=== PATIENT | male | born 1985 | race American Indian/Alaskan Native ===

== ENCOUNTER 2017-01-16 15:05 | Emergency (ER) | payer SELFPAY ==
[2017-01-16 15:19] VITALS: BP 123/85
[2017-01-16 15:42] LABS: Basophils % (Auto) 1.1 % (0.0-1.8); Eosinophils % (Auto) 1.3 % (0.0-4.3); Hematocrit 49.3 % (35.5-45.6); Hemoglobin 15.8 gm/dl (11.8-15.2); Mean Corpuscular HGB Conc 32 % (32-34); Mean Corpuscular Hemoglobin 29 pg (28-32); Mean Corpuscular Volume 90 fl (84-94); Platelet Count 265 K/mm3 (140-440); Red Blood Count 5.51 M/mm3 (3.65-5.03); Red Cell Distribution Width 13.7 % (13.2-15.2); White Blood Count 3.9 K/mm3 (4.5-11.0)
[2017-01-16 15:54] LABS: Anion Gap 16 mmol/L; BUN/Creatinine Ratio 13; Blood Urea Nitrogen 12 mg/dL (9-20); Calcium 9.4 mg/dL (8.4-10.2); Carbon Dioxide 27 mmol/L (22-30); Glucose 73 mg/dL (75-100); Potassium 4.4 mmol/L (3.6-5.0); Sodium 139 mmol/L (137-145)
== END 2017-01-16 22:35 | disposition left against medical advice (07) ==
LOC: ED 15:05
DX: J02.9 Acute pharyngitis, unspecified (principal); Z53.21 Procedure and treatment not carried out due to patient leaving prior to being seen by health care provider
CPT/HCPCS: 36415; 80048; 84484; 85025; 93005; 93010

== ENCOUNTER 2017-02-04 16:48 | Emergency (ER) | payer OTHER ==
[2017-02-04 16:57] VITALS: BP 103/70
--- NOTE | 2017-02-04 17:49 | Emergency Department Report ---
HPI - General Chief Complaint: Dental/Oral Time Seen by Provider: 02/04/17 17:28 - HPI HPI: The patient is a 31-year-old male who presents to ED complaining of 5/10 pain in the right side of his mouth x 3 days . She states that The pain is exacerbated by eating and opening of the mouth. Patient states the pain is alleviated initially with some Goody powder which she took earlier but comes back. Patient states that it radiates towards ear. Patient describes a as a throbbing, pressure-like sensation. Patient states otherwise well and has no other complaints. Patient has had no fevers and no chills. No chest pain, no shortness of breath. No abdominal pain. No shortness of breath or recent trauma to the face. ED Past Medical Hx - Past Medical History Previous Medical History?: No Hx Hypertension: No Hx CVA: No Hx Heart Attack/AMI: No Hx Congestive Heart Failure: No Hx Diabetes: No Hx Deep Vein Thrombosis: No Hx Pulmonary Embolism: No Hx GERD: No Hx Liver Disease: No Hx Renal Disease: No Hx Sickle Cell Disease: No Hx Arthritis: No Hx Headaches / Migraines: No Hx Seizures: No Hx Kidney Stones: No Hx Psychiatric Treatment: No Hx Asthma: No Hx COPD: No Hx Tuberculosis: No Hx Dementia: No Hx HIV: No - Surgical History Hx Coronary Stent: No Hx Open Heart Surgery: No Hx Pacemaker: No Hx Internal Defibrillator: No Hx Cholecystectomy: No Hx Appendectomy: No Hx Breast Surgery: No Additional Surgical History: T&A-childhood - Social History Smoking Status: Never Smoker Substance Use Type: Alcohol - Medications Home Medications: Home Medications Medication Instructions Recorded Confirmed Last Taken Type Acetaminophen/Codeine 1 tab PO Q6H PRN #14 tab 03/18/14 Unknown Rx [Acetaminophen-Codeine #3 TAB] Ibuprofen [Motrin] 800 mg PO Q8H PRN #14 tablet 03/18/14 Unknown Rx Penicillin Vk [Veetids TAB] 500 mg PO QID #40 tablet 03/18/14 Unknown Rx Doxycycline [Vibramycin CAP] 100 mg PO BID #14 capsule 07/23/14 Unknown Rx traMADol [Ultram 50 MG tab] 50 mg PO Q6HR PRN #14 tablet 07/23/14 Unknown Rx Fluticasone [Flonase] 1 spray NS QDAY #1 bottle 09/16/15 Unknown Rx Amoxicillin [Trimox CAP] 500 mg PO Q12H #20 capsule 02/04/17 Unknown Rx Ibuprofen [Motrin] 800 mg PO Q8HR PRN #30 tablet 02/04/17 Unknown Rx ED Review of Systems ROS: Stated complaint: TOOTHACHE Other details as noted in HPI Constitutional: denies: chills, fever Eyes: denies: eye pain, eye discharge, vision change ENT: dental pain. denies: ear pain, throat pain Respiratory: denies: cough, shortness of breath, wheezing Cardiovascular: denies: chest pain, palpitations Endocrine: no symptoms reported Gastrointestinal: denies: abdominal pain, nausea, vomiting, diarrhea Genitourinary: denies: urgency, dysuria Musculoskeletal: denies: back pain, joint swelling, arthralgia Skin: denies: rash, lesions Neurological: denies: headache, weakness, paresthesias Psychiatric: denies: anxiety, depression Hematological/Lymphatic: denies: easy bleeding, easy bruising Physical Exam - Physical Exam Vital Signs: Vital Signs 02/04/17 16:54 Temperature 98.4 F Pulse Rate 65 Respiratory 16 Rate Blood Pressure 103/70 O2 Sat by Pulse 98 Oximetry Physical Exam: GENERAL: Alert and oriented x3, no apparent distress, Normal Gait, atraumatic. HEAD: Head is normocephalic and a-traumatic. EARS: symetrical, atraumatic, non tender, ear canal clear and moderate cerumen, tympanic membrance non inflamed. gross auditory nml bilaterally. MOUTH:Mouth is well hydrated and without lesions. Tonsils nonerythematous or swollen, Uvula midline, Tongue not elevated. Mucous membranes are moist. Posterior pharynx clear, no exudate or lesions. Patent airways. Dental caries in tooth #29, temperature palpation, no change of enlargement no bleeding no discharge NECK: Supple. Non edematous, No carotid bruits. No lymphadenopathy or thyromegaly. No C-spine tenderness LUNGS: Symetrical with respiration, No wheezing, no rales or crackles, CTAB. HEART: S1, S2 present, regular rate and rhythm without murmur, no rubs, no gallops. Non tender to palpation PSYCHIATRIC: Mood is congruent with affect, denies suicidal or homicidal ideations. SKIN: Warm and dry, No lesions, No ulceration or induration present. ED Course Vital Signs 02/04/17 16:54 Temperature 98.4 F Pulse Rate 65 Respiratory 16 Rate Blood Pressure 103/70 O2 Sat by Pulse 98 Oximetry ED Medical Decision Making - Medical Decision Making 31-year-old male who presents with right-sided Facial pain secondary to odontogenic caries ED course: Patient received 1000 mg of amoxicillin, Ultram Odontogenic infection versus ear infection. Based upon history and physical examination, pain is a result of an infection of tooth number 29 and that the pain Pt feels on the right side of his face and towards the ear is referred pain from this infectious process. Pt has no evidence of acute impending airway compromise. At this point, patient will be discharged home on some antibiotics and pain trial, he will do well with an outpatient course of antibiotics. Follow up with the Dental Clinic as referred Vital signs are normal patient is in no acute distress. Pt had an effect uneventful ED stay Critical care attestation.: If time is entered above; I have spent that time in minutes in the direct care of this critically ill patient, excluding procedure time. ED Disposition Clinical Impression: Dental caries, Tooth infection Disposition: TO HOME OR SELFCARE Is pt being admited?: No Does the pt Need Aspirin: No Condition: Stable Instructions: Dental Caries (ED), Toothache (ED) Additional Instructions: Make sure to follow up with the primary care physician as discussed. Take all your medications as you've been prescribed. If you have any worsening symptoms or develop new symptoms please return to ED immediately. Prescriptions: Amoxicillin [Trimox CAP] 500 mg PO Q12H #20 capsule Ibuprofen [Motrin] 800 mg PO Q8HR PRN #30 tablet PRN Reason: Pain Referrals: [facility] [Outside] - 3-5 Days [facility] [Outside] - 3-5 Days Forms: Work/School Release Form(ED) Time of Disposition: 17:48
[2017-02-04] MEDS ORDERED: TRIMOX PO ONE (17:52)
[2017-02-04] MEDS ORDERED: MOTRIN PO ONE (17:52)
== END 2017-02-04 18:21 | disposition home or self-care (01) ==
LOC: ED 16:48
DX: K04.7 Periapical abscess without sinus (principal)
CPT/HCPCS: 99282